=== PATIENT | female | born 1985 | race Two or more races ===

== ENCOUNTER 2020-09-25 00:03 | Emergency (ER) | payer OTHER ==
[~2020-09-25] VITALS: Ht 160 cm; Wt 136.0 kg
[2020-09-25 01:46] LABS: BASOPHILS % (AUTO) 1 % (0-1); EOSINOPHILS % (AUTO) 2 % (1-7); LYMPHOCYTES % (AUTO) 38 % (22-44); MEAN CORPUSCULAR HEMOGLOBIN 32.1 pg (27.0-34.8); MEAN CORPUSCULAR HGB CONC 32.9 g/dL (32.4-35.8); MEAN PLATELET VOLUME 7.7 fL (7.4-10.4); MONOCYTES % (AUTO) 8 % (2-9); NEUTROPHILS % (AUTO) 51 % (42-75); PLATELET COUNT 254 x10^3/uL (130-400); RED BLOOD COUNT 4.34 x10^6/uL (3.82-5.3); RED CELL DISTRIBUTION WIDTH 13.5 % (9.6-15.2)
[2020-09-25 01:51] LABS: ALANINE AMINOTRANSFERASE 44 U/L (12-78); ALBUMIN 3.5 g/dL (3.4-5.0); CALCIUM 8.7 mg/dL (8.5-10.1); CREATININE 0.63 mg/dL (0.55-1.02)
[2020-09-25 01:55] LABS: ALKALINE PHOSPHATASE 69 U/L (45-117); BILIRUBIN,TOTAL 0.5 mg/dL (0.2-1.0); TOTAL PROTEIN 8.1 g/dL (6.4-8.2)
[2020-09-25 02:12] LABS: ANION GAP 4 mmol/L (5-15); CHLORIDE 107 mmol/L (98-107)
--- NOTE | 2020-09-25 02:28 | NUR ---
SINCE SATURDAY, PT HAS HAD ABDOMINAL PAIN FROM HER "HERNIA", AND HAS A "BALL" AT HER UMBILICUS. AND NOW HER LOWER BACK IS STARTING TO HURT, AND HAS PAIN WHEN WALKING. FEELS VERY BLOATED WHEN SHE EATS AND HEARTBURN. SIMILAR SYMPTOMS SHE WAS HAVING WITH HER GALL BLADDER. SHE'S HAD HER GALLBLADDER OUT. NO DIARRHEA AND NO VOMITTING.
[2020-09-25 02:41] LABS: MICROSCOPIC INDICATED
--- NOTE | 2020-09-25 04:06 | NUR ---
PT IN NAD AWAITING CT READ
[2020-09-25 04:07] VITALS: BP 118/72
== END 2020-09-25 02:50 | disposition home or self-care (01) ==
LOC: ED 02:44
DX: R10.33 Periumbilical pain (principal); K42.9 Umbilical hernia without obstruction or gangrene; R93.89 Abnormal findings on diagnostic imaging of other specified body structures; R19.7 Diarrhea, unspecified; R11.0 Nausea
CPT/HCPCS: 36415; 74176; 80053; 81001; 83690; 84703; 85025; 87086; 99284

== ENCOUNTER 2020-11-29 13:26 | Emergency (ER) | payer OTHER ==
[~2020-11-29] VITALS: Ht 160 cm; Wt 116.0 kg
[2020-11-29 15:10] LABS: BASOPHILS % (AUTO) 1 % (0-1); EOSINOPHILS % (AUTO) 2 % (1-7); LYMPHOCYTES % (AUTO) 41 % (22-44); MEAN CORPUSCULAR HEMOGLOBIN 32.3 pg (27.0-34.8); MEAN CORPUSCULAR HGB CONC 33.5 g/dL (32.4-35.8); MEAN PLATELET VOLUME 7.8 fL (7.4-10.4); MONOCYTES % (AUTO) 9 % (2-9); NEUTROPHILS % (AUTO) 47 % (42-75); PLATELET COUNT 262 x10^3/uL (130-400); RED BLOOD COUNT 4.84 x10^6/uL (3.82-5.3); RED CELL DISTRIBUTION WIDTH 13.3 % (9.6-15.2)
[2020-11-29 15:20] LABS: ALBUMIN 3.2 g/dL (3.4-5.0); ANION GAP 6 mmol/L (5-15); CALCIUM 8.6 mg/dL (8.5-10.1); CHLORIDE 107 mmol/L (98-107)
[2020-11-29 15:26] LABS: ALANINE AMINOTRANSFERASE 38 U/L (12-78); ALKALINE PHOSPHATASE 71 U/L (45-117); BILIRUBIN,TOTAL 0.4 mg/dL (0.2-1.0); CREATININE 0.65 mg/dL (0.55-1.02)
[2020-11-29 17:05] VITALS: BP 123/86
--- NOTE | 2020-11-29 18:24 | NUR ---
TASK RN: PT TO [place] [facility] FROM [facility] VIA . TRANSFERED FROM TO [facility] WITH STANDBY ASSIST.
== END 2020-11-29 18:59 | disposition home or self-care (01) ==
LOC: ED 13:31
DX: M51.16 Intervertebral disc disorders with radiculopathy, lumbar region (principal)
CPT/HCPCS: 36415; 80053; 83690; 84703; 85025; 99283